=== PATIENT | male | born 1990 | race Caucasian/White ===

== ENCOUNTER 2024-09-23 19:41 | Emergency (ER) | payer MEDICAID, SELFPAY ==
[2024-09-23] VITALS (10 sets, daily range): BP systolic 147–162; BP diastolic 90–99; PULSE 79–102; RESP 12–28; TEMP 36.7; O2SAT 84–100; BMI 22.1
--- NOTE | 2024-09-23 19:50 | ECG_ITS ---
[facility] 2024-[facility]23 Pat Name: Ollie Bennett Department: Room: Gender: Male Assistant Construction Superintendent: : 1990 Requested By: Lewis Diaz Order Number: [id number] Reading MD: PEBBLES MURILLO Measurements Intervals Hamilton Rate: 97 P: 64 CO: 137 QRS: 26 QRSD: 84 T: 53 QT: 328 QTc: 418 Interpretive Statements SINUS RHYTHM No previous ECG available for comparison Electronically Signed On 09-24-2024 18:08:11 CDT by PEBBLES MURILLO [email or web address]
--- NOTE | 2024-09-23 21:10 | XRR_ITS ---
PROCEDURE INFORMATION: Exam: XR Chest Exam date and time: 09/23/2024 9:22 PM Age: 34 years old Clinical indication: Chest pressure and chest wall pain; Additional info: Cp TECHNIQUE: Imaging protocol: Radiologic exam of the chest. Views: 1 view. COMPARISON: No relevant prior studies available. FINDINGS: Lungs: No consolidation. Pleural spaces: No pleural effusion. No pneumothorax. Heart/Mediastinum: No cardiomegaly. Bones/joints: No acute fracture. XR/XR chest 1V portable [id number] IMPRESSION: No acute cardiopulmonary findings.
--- NOTE | 2024-09-23 21:11 | ED_ITS ---
HPI - Chest Pain 2 General: Chief Complaint: Chest Pain Stated Complaint: chest pressure, high HR Time Seen by Provider: 09/23/24 20:57 History of Present Illness: Patient presents with acute onset of chest pain and tachycardia that began around noon today. Symptoms started after an episode of vomiting, accompanied by severe chest pain. Patient reports multiple episodes of emesis today. Associated symptoms include weakness and near-syncope, stating they 'could barely stand up.' Patient called EMS at approximately 12:15, who performed an EKG and noted initially elevated blood pressure which subsequently decreased. Patient initially refused transport but later presented to ED due to recurring chest tightness and tachycardia. Pertinent past medical history includes Type 1 Diabetes Mellitus with recent A1c of 8.8% (improved from previous readings, last checked May 2024) and a previous myocardial infarction at age 27, which was attributed to poor diabetic control. No interventions were performed for the previous CA. Current diabetes management is reported as 'a lot better' than when younger. Blood glucose was 192 when checked by building trades instructor today. Related Data Allergies Allergy/AdvReac Type Severity Reaction Status Date / Time Penicillins Allergy ALGY-Anaphy Verified 09/23/24 19:49 laxis Physical Exam 2 Const: COMMON NORMALS: no acute distress, patient oriented x3, alert and well nourished HENMT: COMMON NORMALS: normocephalic HEAD & SCALP: normocephalic Eye: COMMON NORMALS: Equal, round and reactive pupils present, EOMs intact bilaterally and conjunctivae normal CONJUNCTIVA: Yes conjunctivae normal P UPIL: Yes Equal, round and reactive pupils present Neck/C-Spine: COMMON NORMALS: full ROM, no lymphadenopathy, supple, no meningeal signs, no JVD and Thyroid normal THYROID: Thyroid normal Chest: COMMONS NORMALS: normal inspection of the chest and normal palpation of entire chest wall Resp: COMMON NORMALS: normal respiratory effort, No retractions, No use of accessory muscles, clear to auscultation bilaterally and percussion normal A USCULTATION: clear to auscultation bilaterally PERCUSSION: percussion normal Cardio: COMMON NORMALS: no JVD GI: COMMON NORMALS: Normal to inspection, nondistended, normoactive bowel sounds present, Soft to palpation, non-tender, No hepatosplenomegaly present, no masses and no bruits PALPATION: Yes Soft to palpation and Yes No hepatosplenomegaly present : COMMON NORMALS: Yes no CVA tenderness BLADDER/KIDNEY EXAM: Yes no CVA tenderness Back/Pelvis: COMMON NORMALS: no CVA tenderness Extremity: COMMON NORMALS: normal to inspection, full ROM, capillary refill normal, no joint enlargement, no clubbing, cyanosis or edema, no calf tenderness and no pedal edema Neuro: COMMON NORMALS: patient oriented x3 SENSORIUM/ORIENTATION: Yes alert MENINGEAL SIGNS: Yes no meningeal signs Skin: COMMON NORMALS: no rashes or lesions noted, turgor normal and no jaundice GENERAL SKIN EXAM: no rashes or lesions noted and turgor normal Course 2 Vital Signs: Vital signs: Vital Signs Temperature 98.0 F 09/23/24 19:44 Pulse Rate 81 09/23/24 22:20 Respiratory Rate 22 H 09/23/24 22:20 Blood Pressure 162/91 09/23/24 22:20 Pulse Oximetry 98 09/23/24 22:20 Oxygen Delivery Me thod Room Air 09/23/24 21:14 MDM - Chest Pain Medical Decision Making 1. Acute Chest Pain with Tachycardia: - Concerning presentation given history of previous CA and Type 1 Diabetes - Will obtain and review EKG from current visit - Ordering chest X-ray - Cardiac workup indicated including troponins 2. Type 1 Diabetes Mellitus: - Suboptimal control with A1c 8.8% - Will check current blood glucose and basic metabolic panel - Consider diabetic ketoacidosis in differential given vomiting 3. Nausea/Vomiting: - New onset, requires investigation in context of chest pain - Will monitor symptoms and provide antiemetics as needed Plan: - Continuous cardiac monitoring - Laboratory studies including cardiac enzymes, CBC, CMP - Review EMS EKG and obtain current EKG - Chest X-ray - Reassess after results available Lab Data 09/23/24 21:24 09/23/24 21:24 Laboratory Results WBC 9.72 10^3/uL (3.29-11.43) 09/23/24 21:24 RBC 3.25 10^6/uL (3.85-5.65) L 09/23/24 21:24 Hgb 10.00 g/dL (11.27-16.99) L 09/23/24 21:24 Hct 29.2 % (37-53) L 09/23/24 21:24 MCV 89.8 fl (82-101) 09/23/24 21: MCH 30.8 pg (27-33) 09/23/24 21:24 MCHC 34.2 g/dL (30-55) 09/23/24 21: RDW 11.9 % (12.1-15.1) L 09/23/24 21:24 Plt Count 286 10^3/cmm (157-399) 09/23/24 21:24 MPV 9.4 fL (7.4-10.4) 09/23/24 21:24 Neut % (Auto) 64.3 % 09/23/24 21: Lymph % (Auto) 25.7 % 09/23/24: Cameron % (Auto) 6.6 % 09/23/24: Eos % (Auto) 3.0 % 09/23/24 21: Baso % (Auto) 0.1 % 09/23/24: Neut # (Auto) 6.25 10^3/uL (1.8-7.7) 09/23/24: Lymph # (Auto) 2.5 10^3/uL (0.8-4.8) 09/23/24 21:24 Cameron # (Auto) 0.6 10^3/uL (0.2-0.9) 09/23/24: Eos # (Auto) 0.3 10^3/uL (0.0-0.8) 09/23/24: Baso # (Auto) 0.0 10^3/uL (0.0-0.1) 09/23/24: Nucleated RBC % (auto) 0 % 09/23/24: Nucleated RBCs # 0.0 /100WBC 09/23/24 21:24 Sodium 135 mmol/L (136-145) L 09/23/24 21:24 Potassium 4.3 mmol/L (3.5-5.1) 09/23/24 21: Chloride 101 mmol/L (98-107) 09/23/24 21:24 Carbon Dioxide 23 mmol/L (22-29) 09/23/24 21:24 Anion Gap 15.3 (5-19) 09/23/24 21:24 BUN 33 mg/dL (6-20) H 03/16/25 21:24 Creatinine 2.2 mg/dL (0.7-1.2) H 09/23/24 21:24 GFR Calculation 34.2 mL/min (90-130) L 09/23/24 21:24 Glucose 352 mg/dL (65-115) H 09/23/24 21:24 Calculated Osmolality 301 mOsm/kg (285-295) H 09/23/24 21:24 Calcium 8.9 mg/dL (8.5-10.5) 09/23/24 21:24 Total Bilirubin 0.2 mg/dL (0.15-1.2) 09/23/24 21:24 AST 20 U/L (0-40) 09/23/24 21:24 ALT 15 U/L (0-41) 09/23/24 21:24 Alkaline Phosphatase 83 U/L (40-130) 09/23/24 21:24 Troponin T Baseline 19 ng/L (0-15) H 09/23/24 21:24 Total Protein 6.5 g/dL (6.6-8.7) L 09/23/24 21:24 Albumin 3.6 g/dL (3.5-5.2) 09/23/24 21:24 Globulin 2.9 g/dL (1.3-4.6) 09/23/24 21:24 XR interpretation done by ED provider, pending radiology final review Discharge Plan Discharge Condition: Stable Referrals: Lashae Rolon APN [Primary Care Provider] - Print Language: Maori Coding Level of Care Code ED Human Service Coordinator for Fátima Sue
[2024-09-23 21:29] LABS: Basophils % 0.1 %; Eosinophils # 0.3 10^3/uL (0.0-0.8); Hematocrit 29.2 % (37-53); Lymphocytes # 2.5 10^3/uL (0.8-4.8); Lymphocytes % 25.7 %; Mean Corpuscular HGB Conc 34.2 g/dL (30-55); Mean Corpuscular Hemoglobin 30.8 pg (27-33); Mean Corpuscular Volume 89.8 fl (82-101); Mean Platelet Volume 9.4 fL (7.4-10.4); Monocytes # 0.6 10^3/uL (0.2-0.9); Monocytes % 6.6 %; Neutrophils # 6.25 10^3/uL (1.8-7.7); Neutrophils % 64.3 %; Nucleated Red Blood Cells % 0 %; Platelet Count 286 10^3/cmm (157-399); Red Blood Count 3.25 10^6/uL (3.85-5.65); Red Cell Distribution Width 11.9 % (12.1-15.1); White Blood Count 9.72 10^3/uL (3.29-11.43)
[2024-09-23 21:46] LABS: Troponin(5th) Baseline 19 ng/L (0-15)
[2024-09-23 22:09] LABS: Alanine Aminotransferase 15 U/L (0-41); Albumin Level 3.6 g/dL (3.5-5.2); Alkaline Phosphatase 83 U/L (40-130); Anion Gap 15.3 (5-19); Aspartate Amino Transferase 20 U/L (0-40); Blood Urea Nitrogen 33 mg/dL (6-20); Calcium 8.9 mg/dL (8.5-10.5); Carbon Dioxide 23 mmol/L (22-29); Chloride 101 mmol/L (98-107); Globulin 2.9 g/dL (1.3-4.6); Glomerular Filtration Rate 34.2 mL/min (90-130); Glucose 352 mg/dL (65-115); Osmolality Calculated 301 mOsm/kg (285-295); Potassium 4.3 mmol/L (3.5-5.1); Sodium 135 mmol/L (136-145); Total Bilirubin 0.2 mg/dL (0.15-1.2); Total Protein 6.5 g/dL (6.6-8.7)
--- NOTE | 2024-09-23 22:33 | ED_ITS ---
HPI - Chest Pain 2 General: Chief Complaint: Chest Pain Stated Complaint: chest pressure, high HR Time Seen by Provider: 09/23/24 20:57 History of Present Illness: Patient presents with acute onset of chest pain and tachycardia that began around noon today. Symptoms started after an episode of vomiting, accompanied by severe chest pain. Patient reports multiple episodes of emesis today. Associated symptoms include weakness and near-syncope, stating they 'could barely stand up.' Patient called EMS at approximately 12:15, who performed an EKG and noted initially elevated blood pressure which subsequently decreased. Patient initially refused transport but later presented to ED due to recurring chest tightness and tachycardia. Pertinent past medical history includes Type 1 Diabetes Mellitus with recent A1c of 8.8% (improved from previous readings, last checked May 2024) and a previous myocardial infarction at age 27, which was attributed to poor diabetic control. No interventions were performed for the previous [facility]. Current diabetes management is reported as 'a lot better' than when younger. Blood glucose was 192 when checked by marketing traffic coordinator today. Related Data Allergies Allergy/AdvReac Type Severity Reaction Status Date / Time Penicillins Allergy ALGY-Anaphy Verified 09/23/24 19:49 laxis Physical Exam 2 Const: COMMON NORMALS: no acute distress, patient oriented x3, alert and well nourished HENMT: COMMON NORMALS: normocephalic HEAD & SCALP: normocephalic Eye: COMMON NORMALS: Equal, round and reactive pupils present, EOMs intact bilaterally and conjunctivae normal CONJUNCTIVA: Yes conjunctivae normal P UPIL: Yes Equal, round and reactive pupils present Neck/C-Spine: COMMON NORMALS: full ROM, no lymphadenopathy, supple, no meningeal signs, no JVD and Thyroid normal THYROID: Thyroid normal Chest: COMMONS NORMALS: normal inspection of the chest and normal palpation of entire chest wall Resp: COMMON NORMALS: normal respiratory effort, No retractions, No use of accessory muscles, clear to auscultation bilaterally and percussion normal A USCULTATION: clear to auscultation bilaterally PERCUSSION: percussion normal Cardio: COMMON NORMALS: no JVD GI: COMMON NORMALS: Normal to inspection, nondistended, normoactive bowel sounds present, Soft to palpation, non-tender, No hepatosplenomegaly present, no masses and no bruits PALPATION: Yes Soft to palpation and Yes No hepatosplenomegaly present : COMMON NORMALS: Yes no CVA tenderness BLADDER/KIDNEY EXAM: Yes no CVA tenderness Back/Pelvis: COMMON NORMALS: no CVA tenderness Extremity: COMMON NORMALS: normal to inspection, full ROM, capillary refill normal, no joint enlargement, no clubbing, cyanosis or edema, no calf tenderness and no pedal edema Neuro: COMMON NORMALS: patient oriented x3 SENSORIUM/ORIENTATION: Yes alert MENINGEAL SIGNS: Yes no meningeal signs Skin: COMMON NORMALS: no rashes or lesions noted, turgor normal and no jaundice GENERAL SKIN EXAM: no rashes or lesions noted and turgor normal Course 2 Vital Signs: Vital signs: Vital Signs Temperature 98.0 F 09/23/24 19:44 Pulse Rate 81 09/23/24 22:20 Respiratory Rate 22 H 09/23/24 22:20 Blood Pressure 162/91 09/23/24 22:20 Pulse Oximetry 98 09/23/24 22:20 Oxygen Delivery Me thod Room Air 09/23/24 21:14 MDM - Chest Pain Medical Decision Making 1. Acute Chest Pain with Tachycardia: - Concerning presentation given history of previous VA and Type 1 Diabetes - Will obtain and review EKG from current visit - Ordering chest X-ray - Cardiac workup indicated including troponins 2. Type 1 Diabetes Mellitus: - Suboptimal control with A1c 8.8% - Will check current blood glucose and basic metabolic panel - Consider diabetic ketoacidosis in differential given vomiting 3. Nausea/Vomiting: - New onset, requires investigation in context of chest pain - Will monitor symptoms and provide antiemetics as needed Plan: - Continuous cardiac monitoring - Laboratory studies including cardiac enzymes, CBC, CMP - Review EMS EKG and obtain current EKG - Chest X-ray - Reassess after results available X-ray was reviewed preliminarily no acute findings. Specifically no free air under the diaphragm or mediastinal shift. No pneumothorax. EKG revealed a normal sinus rhythm his initial lab work was normal or nondiagnostic he did have some abnormalities including some anemia and markedly elevated blood sugar that could be playing a role in his symptoms. We talked about disposition and the importance of follow-up he is agreeable to being discharged home with follow-up. Lab Data 09/23/24 21:24 09/23/24 21:24 Laboratory Results WBC 9.72 10^3/uL (3.29-11.43) 09/23/24: RBC 3.25 10^6/uL (3.85-5.65) L 09/23/24 21: Hgb 10.00 g/dL (11.27-16.99) L 09/23/24 21: Hct 29.2 % (37-53) L 09/23/24: MCV 89.8 fl (82-101) 09/23/24: MCH 30.8 pg (27-33) 09/23/24: MCHC 34.2 g/dL (30-55) 09/23/24: RDW 11.9 % (12.1-15.1) L 09/23/24: Plt Count 286 10^3/cmm (157-399) 09/23/24: MPV 9.4 fL (7.4-10.4) 09/23/24: Neut % (Auto) 64.3 % 09/23/24: Lymph % (Auto) 25.7 % 09/23/24: Knott % (Auto) 6.6 % 09/23/24: Eos % (Auto) 3.0 % 09/23/24: Baso % (Auto) 0.1 % 09/23/24: Neut # (Auto) 6.25 10^3/uL (1.8-7.7) 09/23/24: Lymph # (Auto) 2.5 10^3/uL (0.8-4.8) 09/23/24: Knott # (Auto) 0.6 10^3/uL (0.2-0.9) 09/23/24: Eos # (Auto) 0.3 10^3/uL (0.0-0.8) 09/23/24: Baso # (Auto) 0.0 10^3/uL (0.0-0.1) 09/23/24: Nucleated RBC % (auto) 0 % 09/23/24: Nucleated RBCs # 0.0 /100WBC 09/23/24: Sodium 135 mmol/L (136-145) L 03/16/25 21:24 Potassium 4.3 mmol/L (3.5-5.1) 09/23/24 21:24 Chloride 101 mmol/L (98-107) 09/23/24 21:24 Carbon Dioxide 23 mmol/L (22-29) 09/23/24 21:24 Anion Gap 15.3 (5-19) 09/23/24 21:24 BUN 33 mg/dL (6-20) H 09/23/24 21:24 Creatinine 2.2 mg/dL (0.7-1.2) H 09/23/24 21:24 GFR Calculation 34.2 mL/min (90-130) L 09/23/24 21:24 Glucose 352 mg/dL (65-115) H 09/23/24 21:24 Calculated Osmolality 301 mOsm/kg (285-295) H 09/23/24 21:24 Calcium 8.9 mg/dL (8.5-10.5) 09/23/24 21:24 Total Bilirubin 0.2 mg/dL (0.15-1.2) 09/23/24 21:24 AST 20 U/L (0-40) 09/23/24 21:24 ALT 15 U/L (0-41) 09/23/24 21:24 Alkaline Phosphatase 83 U/L (40-130) 09/23/24 21:24 Troponin T Baseline 19 ng/L (0-15) H 09/23/24 21:24 Total Protein 6.5 g/dL (6.6-8.7) L 09/23/24 21:24 Albumin 3.6 g/dL (3.5-5.2) 09/23/24 21:24 Globulin 2.9 g/dL (1.3-4.6) 09/23/24 21:24 XR interpretation done by ED provider, pending radiology final review Discharge Plan Discharge Patient Disposition: Home Clinical Impression: Atypical chest pain Condition: Stable Discharge Orders: Discharge ED (Routine); Ordered 09/23/24 Ordered By: Lewis Diaz Referrals: Lashae Rolon APN [Primary Care Provider] - Discharge Diet: Diabetic Discharge Activity: Increase activity as tolerated Patient Instructions: Opioid Safety, Pain Management Activity Restrictions/Additional Instructions: 1. Call PCP for follow-up tomorrow. Return for new or worsening symptoms. Print Language: Amharic Coding Level of Care Code ED Pit Recorder for Fátima Sue
== END 2024-09-23 22:55 | disposition home or self-care (01) ==
PROVIDERS: Emergency Provider Family Medicine; PCP Nurse Practitioner Family
DX: R07.89 Other chest pain (principal)
CPT/HCPCS: 36415; 71045; 80053; 84484; 85025; 93005; 99285

== ENCOUNTER 2024-11-26 20:35 | Emergency (ER) | payer BC, SELFPAY ==
[2024-11-26 20:44] VITALS: BP 135/80; PULSE 114; TEMP 37.7; O2SAT 98; BMI 21.4
[2024-11-26 20:55] VITALS: PULSE 108; O2SAT 99
[2024-11-26] MEDS: lidocaine 1% 10 ML INJ SUBCUT (21:01)
--- NOTE | 2024-11-26 21:11 | W.ED.SKABFB ---
HPI - Skin/Abscess/Foreign Bdy General: Chief complaint: Skin/Abscess/Foreign Body Stated complaint: pain on bottom Time Seen by Provider: 11/26/24 20:51 Source: patient Mode of arrival: ambulatory Limitations: no limitations History of Present Illness: 34-year-old male states that he has had an abscess to his left buttocks and it was for the last few days he said some slight drainage from it it is enlarged and causing pain he denies any fevers at home denies any vomitings had multiple abscesses in the past. Denies any Associated symptoms: Reports fever(s); Deny chills, nausea or vomiting Related Data Previous Rx's ?Medication ?Instructions ?Recorded clindamycin HCl 300 mg capsule 300 mg PO Q8H 7 days #21 caps 11/26/24 (Cleocin HCl) naproxen 500 mg tablet (Naprosyn) 500 mg PO BID PRN pain #20 tabs 11/26/24 Allergies Allergy/AdvReac Type Severity Reaction Status Date / Time Penicillins Allergy ALGY-Anaphy Verified 11/26/24 20:50 laxis Review of Systems Const: Reports: fever(s); Denies: chills, body aches or change in appetite ENMT: Denies: throat pain or dental pain Card: Denies: chest pain Resp: Denies: dyspnea GI: Denies: abdominal pain, nausea, vomiting or diarrhea Musc: Denies: neck pain or back pain Skin/Breast: Reports: erythema; Denies: rash Neuro: Denies: headache(s) Physical Exam Const: COMMON NORMALS: no acute distress, patient oriented x3 and healthy appearing HENMT: COMMON NORMALS: normocephalic and atraumatic HEAD & SCALP: normocephalic and atraumatic Eye: COMMON NORMALS: conjunctivae normal CONJUNCTIVA: Yes conjunctivae normal Neck/C-Spine: COMMON NORMALS: full ROM and supple Chest: COMMONS NORMALS: normal inspection of the chest Resp: COMMON NORMALS: normal respiratory effort Cardio: COMMON NORMALS: regular rate RATE: regular rate GI: OTHER: Abscess noted to left inner butt cheek no testicle or perineal involvement Extremity: COMMON NORMALS: normal to inspection and full ROM Neuro: COMMON NORMALS: patient oriented x3, moves all extremities and no focal motor deficits Psych: COMMON NORMALS: mental status grossly normal, Normal thought process present and cooperative THOUGHT PROCESS: Normal thought process present Skin: COMMON NORMALS: no rashes or lesions noted and no wounds GENERAL SKIN EXAM: no rashes or lesions noted Procedures Abscess I/D Site: martin-rectal Side (if applicable): left Local Anesthetic: lidocaine 1% Amount of anesthesia used (mL): 10 Technique: incised with #11 blade Packing used?: iodoform Course Vital Signs: Vital signs: Vital Signs Temperature 99.8 F H 11/26/24 20:44 Pulse Rate 108 H 11/26/24 20:55 Blood Pressure 135/80 11/26/24 20:44 Pulse Oximetry 99 11/26/24 20:55 Oxygen Delivery Me thod Room Air 11/26/24 20:44 MDM - Skin/Abscess/Foreign Bdy Medicial Decision Making Patient presents for an abscess to his left inner buttocks did ultrasound was found a pocket did incise and drain with a large amount of purulent fluid did place packing he is to come back in 2 days to have packing removed and wound check he has no signs of Martina's gangrene he is return if he has high fevers or worsening pain he understands agrees to plan No radiology studies performed this visit Discharge Plan Discharge Patient Disposition: Home Clinical Impression: Abscess Condition: Stable Prescriptions: New naproxen [Naprosyn] 500 mg tablet 500 mg PO BID PRN (Reason: pain) Qty: 20 0RF clindamycin HCl [Cleocin HCl] 300 mg capsule 300 mg PO Q8H 7 Days Qty: 21 0RF Discharge Orders: Discharge ED (Routine); Ordered 11/26/24 Ordered By: Aide Rivera Referrals: Lashae Rolon APN [Primary Care Provider, [facility]] Discharge Diet: Advance as tolerated Discharge Activity: Resume usual activity Patient Instructions: Abscess (ED) Print Language: Ecuadorean Coding Level of Care Code ED Geographic Information Systems Analyst for Fátima Sue
[2024-11-26] MEDS: HYDROcodone-acetaminophen 5-325 mg Tablet 1 TAB PO (21:16)
[2024-11-26] MEDS: clindamycin 150 mg Capsule 300 MG PO (21:16)
[2024-11-26 21:52] VITALS: BP 180/103; PULSE 89; RESP 16; O2SAT 100
== END 2024-11-26 21:53 | disposition home or self-care (01) ==
PROVIDERS: Emergency Provider Emergency Medicine; PCP Nurse Practitioner Family
DX: L02.31 Cutaneous abscess of buttock (principal)
CPT/HCPCS: 10060; 99283; J9999

== ENCOUNTER 2025-04-30 18:22 | Emergency (ER) | payer BC, SELFPAY ==
--- OUTSIDE RECORDS SUMMARY | 2024-07-02 06:00 | XMS_ITS ---
Author Organization [facility] Address [address] [facility] [place] [address] Care Team Providers Care Public Health Professor Name Role Phone Joshua Rolon Primary Care Provider [phone] JOSHUA ROLON Unavailable Unavailable Marguerite Lancaster Unavailable [phone] REASON FOR VISIT CKD Stage 3a Medications Medication SIG (Take, Route, Frequency, Duration) Notes Start Date End Date Status Carvedilol 25 MG Tablet 1 tablet with fo od Orally Twice a day Active cloNIDine HCl 0.1 MG Tablet 1 tablet Orally Twice a day Active Chlorthalidone 25 MG Tablet 1 tablet in the morning with food Orally Not-Taking Doxazosin Mesylate 8 MG Tablet 1 tablet Orally twice a day Active HumaLOG KwikPen 100 UNIT/ML Solution Pen-injector sliding scale Subcutaneous Active Atorvastatin Calcium 40 MG Tablet 1 tablet Orally Once a day Active Toujeo SoloStar 300 UNIT/ML Solution Pen-injector 40 units at bedtime Subcutaneous Active Spironolactone 25 MG Tablet 1 tablet Orally Not-Taking Methocarbamol 500 MG Tablet 2 tabs Orally four times a day as needed Active Losartan Potassium 100 MG Tablet 1 tablet Orally Once a day Active Encounters Encounter Location Date Provider Diagnosis [facility] [address] [place] [address] Dr Jacobsen [address] [place] [address] 07/02/2024 Marguerite Lancaster Plan Of Treatment No Information History and Physical Notes * HPI (History of Present Illness) Category Sub-Category Detail Notes Category Not es : The following is from my interview with the patient and review of provided records, which may include inpatient [facility] records. Mr. Bennett is a 34-year-old male patient presenting for evaluation of stage IIIa CKD. He was referred by Joshua Rolon APRN. He has a past medical history of type 1 diabetes, TBI . He was hospitalized from 05/20/2024 to [facility] diagnosis of BLU dehydration and hyperglycemia. It was suspected his BLU was secondary to hyperglycemia and dehydration. His creatinine on presentation was 2.2. Upon discharge his creatinine was 1.86. His most recent creatinine was 2.07 on 05/28/2024. There is limited data available for review as patient recently relocated to the area from [place]. He was diagnosed with type 1 diabetes at the age of . His HgbA1c was 10.4% on 05/28/2024. He is currently taking a sliding scale Humalog and Toujeo 40 units at bedtime. He was diagnosed with hypertension at the age of . Currently takes clonidine 0.1 mg twice daily, doxazosin 8 mg twice daily, losartan 100 mg twice daily and carvedilol 25 mg twice daily. Comorbidities: Type 1 diabetes, hypertension, TBI Associated factors: Aggravating factors: Labratory data: 05/28/2024:145, 4.9, 114, 25.5, 49, 2.07, glucose 122, calcium 9.9, albumin 3.9, A1c 10.4% 05/21/2024:147, 4.1, 116, 23.8, 34, 1.86, glucose 192, calcium 9.7, phosphorus 2.8, magnesium 1.8, hemoglobin 9.4 05/20/2024:138, 4.7, 107, 25.8, 41, 1.98, glucose 307, calcium 10.1, albumin 4.1, hemoglobin 9.6 Progress Notes * Ollie BENNETTDOB:1989 (34 yo M)Acc No.[id number]:07/02/2024 Progress Notes Patient: Ollie Epperson Provider: Kristy Lancaster CNP :1990 A ge:34 Y S ex:Male Date:07/02/2024 Address:[address] [place] [address], [id number] Pcp:Joshua Rolon Subjective: * Chief Complaints: * C KD Stage 3a * HPI: * :: The following is from my interview with the patient and review of provided records, which may include inpatient [facility] records. Kristy Bennett is a 34-year-old male patient presenting for evaluation of stage IIIa CKD. He was referred by Joshua Rolon APRN. He has a past medical history of type 1 diabetes, TBI . He was hospitalized from 05/20/2024 to 05/21/2024 [facility] for diagnosis of BLU dehydration and hyperglycemia. It was suspected his BLU was secondary to hyperglycemia and dehydration. His creatinine on presentation was 2.2. Upon discharge his creatinine was 1.86. His most recent creatinine was 2.07 on 05/28/2024. There is limited data available for review as patient recently relocated to the area from [place]. David mejia was diagnosed with type 1 diabetes at the age of . His HgbA1c was 10.4% on 05/28/2024. He is currently taking a sliding scale Humalog and Toujeo 40 units at bedtime. David mejia was diagnosed with hypertension at the age of . Currently takes clonidine 0.1 mg twice daily, doxazosin 8 mg twice daily, losartan 100 mg twice daily and carvedilol 25 mg twice daily. Comorbidities: Type 1 diabetes, hypertension, TBI Associated factors: Aggravating factors: Labratory data: 05/28/2024:145, 4.9, 114, 25.5, 49, 2.07, glucose 122, calcium 9.9, albumin 3.9, A1c 10.4% 05/21/2024:147, 4.1, 116, 23.8, 34, 1.86, glucose 192, calcium 9.7, phosphorus 2.8, magnesium 1.8, hemoglobin 9.4 05/20/2024:138, 4.7, 107, 25.8, 41, 1.98, glucose 307, calcium 10.1, albumin 4.1, hemoglobin 9.6. * Hospitalization/Major Diagno stic Procedure: hypoglycemia 05/20/2024 * Medications: T akingAtorvastatin Calcium 40 MG Tablet 1 tablet Orally Once a day Carvedilol 25 MG Tablet 1 tablet with food Orally Twice a day cloNIDine HCl 0.1 MG Tablet 1 tablet Orally Twice a day Doxazosin Mesylate 8 MG Tablet 1 tablet Orally twice a day HumaLOG KwikPen 100 UNIT/ML Solution Pen-injector sliding scale Subcutaneous Losartan Potassium 100 MG Tablet 1 tablet Orally Once a day Methocarbamol 500 MG Tablet 2 tabs Orally four times a day as needed Toujeo SoloStar 300 UNIT/ML Solution Pen- injector 40 units at bedtime Subcutaneous Taking Atorvastatin Calcium 40 MG Tablet 1 tablet Orally Once a day Taking Carvedilol 25 MG Tablet 1 tablet with food Orally Twice a day Taking cloNIDine HCl 0.1 MG Tablet 1 tablet Orally Twice a day Taking Doxazosin Mesylate 8 MG Tablet 1 tablet Orally twice a day Taking HumaLOG KwikPen 100 UNIT/ML Solution Pen-injector sliding scale Subcutaneous Taking Losartan Potassium 100 MG Tablet 1 tablet Orally Once a day Taking Methocarbamol 500 MG Tablet 2 tabs Orally four times a day as needed Taking Toujeo SoloStar 300 UNIT/ML Solution Pen- injector 40 units at bedtime Subcutaneous Not-TakingChlorthalidone 25 MG Tablet 1 tablet in the morning with food Orally Spironolactone 25 MG Tablet 1 tablet Orally Not- Taking Chlorthalidone 25 MG Tablet 1 tablet in the morning with food Orally Not-Taking Spironolactone 25 MG Tablet 1 tablet Orally * Electronic signature of Poonam Lancaster CNP on 04/30/2025 at 06:57 PM CDT Sign off status: Pending * Provider: Kristy Lancaster CNP Date: 09/02/2023 Generated for Lion davis/Kassie/Kemar on: 06:57 PM CDT
--- OUTSIDE RECORDS SUMMARY | 2024-08-28 02:40 | XMS_ITS ---
Author Organization [facility] Address [address] [place] [address] Care Team Providers Care Inter Fold Roll Cutter Name Role Phone Lashae Rolon Primary Care Provider LASHAE ROLON Unavailable Unavailable REASON FOR VISIT 3 month f/u Encounters Encounter Location Date Provider Diagnosis [facility] [address] [address] 08/28/2024 Lashae Rolon Plan Of Treatment No Information Progress Notes * Ollie BENNETTDOB:1989 (34 yo M)Acc No.[id number]:08/28/2024 Progress Notes Patient: Ani avendañomedardoOllie Provider: Mateus Rolon APRN :1990 A ge:34 Y S ex:Male Date:08/28/2024 Address:[address] [place], [place] [address] Subjective: * Chief Complaints: * 3 month f/u Care Plan Details* * Electronic signature of Eduin Rolon APN on 04/30/2025 at 06:55 PM CDT Sign off status: Pending * Provider: Mateus Rolon APRN Date: 0 08/28/2024 Generated for Pami ng/Kassie/eTransmitting on: 1 06:55 PM CDT
--- OUTSIDE RECORDS SUMMARY | 2024-10-13 04:00 | XMS_ITS ---
Author Organization [facility] Address [address] [place], [place] [id number] Care Team Providers Care Consulting It Architect Name Role Phone Migration, Provider Unavailable Unavailable REASON FOR VISIT EMR-Yury Encounters Encounter Location Date Provider Diagnosis [facility] [address] [place], [place] [id number] 10/13/2024 Provider Migration Plan Of Treatment No Information Progress Notes * Ollie BENNETT LDOB:10/1989 (34 yo M)Acc No.[id number]:10/13/2024 Patient: Ollie BELCHER :1990 A ge:34 Y S ex:Male Address:[facility] [place], [address] Subjective: * Chief Complaints: * E MR-Yury * * Date:
--- OUTSIDE RECORDS SUMMARY | 2024-10-14 04:00 | XMS_ITS ---
Author Organization [facility] Address [address] [place], [place] [id number] Care Team Providers Care It Applications Analyst Name Role Phone Migration, Provider Unavailable Unavailable REASON FOR VISIT EMR-Yury Encounters Encounter Location Date Provider Diagnosis [facility] [address] [place], [place] [id number] 10/14/2024 Provider Migration Plan Of Treatment No Information Progress Notes * Ollie BENNETT LDOB:10/1989 (34 yo M)Acc No.[id number]:10/14/2024 Patient: Ollie BELCHER :1990 A ge:34 Y S ex:Male Address:[facility] [place], [address] Subjective: * Chief Complaints: * E MR-Yury * * Date:
[2025-04-30 18:27] VITALS: BP 159/97; PULSE 97; TEMP 36.9; O2SAT 100; BMI 21.4
--- NOTE | 2025-04-30 18:42 | ED_ITS ---
HPI - Dental/Oral General: Chief complaint: Dental/Oral Stated complaint: Face swollen Time Seen by Provider: 04/30/25 18:24 History of Present Illness: 34-year-old man who [facility] with right lower jaw pain. He has a bad tooth. He has developed swelling in the anterior right jaw region. Related Data Previous Rx's ?Medication ?Instructions ?Recorded naproxen 500 mg tablet (Naprosyn) 500 mg PO BID PRN pa in #20 tabs 11/26/24 clindamycin HCl 300 mg capsule 600 mg (2 x 300 mg) PO Q8H 10 days 04/30/25 #60 caps dexamethasone 6 mg tablet 6 mg PO DAILY 5 days #5 tabs 04/30/25 diclofenac sodium 50 mg 50 mg PO BID PRN pain #14 ta bs 04/30/25 tablet,delayed release Allergies Allergy/AdvReac Type Severity Reaction Status Date / Time Penicillins Allergy ALGY-Anaphy Verified 04/30/25 18:30 laxis Review of Systems Narrative: Constitutional symptoms: Negative except as documented in HPI. Skin symptoms: Negative except as documented in HPI. Eye symptoms: Negative except as documented in HPI. ENMT symptoms: Negative except as documented in HPI. Respiratory symptoms: Negative except as documented in HPI. Cardiovascular symptoms: Negative except as documented in HPI. Gastrointestinal symptoms: Negative except as documented in HPI. Genitourinary symptoms: Negative except as documented in HPI. Musculoskeletal symptoms: Negative except as documented in HPI. Neurologic symptoms: Negative except as documented in HPI. Psychiatric symptoms: Negative except as documented in HPI. Endocrine symptoms: Negative except as documented in HPI. Physical Exam Narrative: EXAM NARRATIVE: General: Alert, no acute distress. Skin: warm and dry Head: Normocephalic Neck: Trachea midline Eye: Extraocular movements are intact. Ears, nose, mouth and throat: Poor dentition. Swelling consistent with a right lower frontal dental abscess. Respiratory: Respirations are non-labored Musculoskeletal: Normal ROM Gastrointestinal: Abdomen does not appear distended Neurological: Alert and oriented, No focal neurological deficit observed. Psychiatric: Cooperative, appropriate mood & affect. Course Vital Signs: Vital signs: Vital Signs Temperature 98.4 F 04/30/25 18:27 Pulse Rate 97 04/30/25 18:27 Blood Pressure 159/97 04/30/25 18:27 Pulse Oximetry 100 04/30/25 18:27 Oxygen Delivery Me thod Room Air 04/30/25 18:27 MDM - Dental/Oral Medical Decision Making Medical decision making: Differential diagnosis including but not limited to and based on the above HPI, review of systems and physical exam: Patient has a fairly obvious dental abscess. At this point he needs antibiotics and follow-up with a dentist. No indication for any imaging or lab work. Assessment and plan: Dental abscess ?IM clinda and IM Toradol - Discharged home - Discussed plan with patient. Answered any questions. - Evaluation and treatment of this problem were appropriate in the emergency setting. No radiology studies performed this visit Discharge Plan Discharge Patient Disposition: Home Clinical Impression: Dental abscess Condition: Stable Prescriptions: New clindamycin HCl 300 mg capsule 600 mg PO Q8H 10 Days Qty: 60 0RF dexamethasone 6 mg tablet 6 mg PO DAILY 5 Days Qty: 5 0RF diclofenac sodium 50 mg tablet,delayed release (DR/EC) 50 mg PO BID PRN (Reason: pain) Qty: 14 0RF No Action naproxen [Naprosyn] 500 mg tablet 500 mg PO BID PRN (Reason: pain) Qty: 20 0RF Discharge Orders: Discharge ED (Routine); Ordered 04/30/25 Ordered By: Tosha Austin Referrals: Lashae Rolon APN [Primary Care Provider, Family Practice] Discharge Diet: Advance as tolerated Discharge Activity: Increase activity as tolerated Patient Instructions: Dental Abscess (ED), Opioid Safety, Pain Management, Patient Portal & Sydni Instructions Activity Restrictions/Additional Instructions: Please follow-up with a dentist soon as possible Thank you for choosing [facility] for your healthcare needs today. You have been screened and evaluated and felt safe for discharge. Health conditions do change or evolve sometimes and as such it is important that you follow up with your Primary Doctor to be re checked, 3-5 days is a general good time frame for follow up. You are always welcome to return to the ED for re assessment if your symptoms are worsening or you have new concerns Print Language: Kittitian Coding Level of Care Code ED Day Habilitation Specialist for Fátima Sue
--- OUTSIDE RECORDS SUMMARY | 2025-04-30 18:57 | XMS_ITS | Patient Health Record ---
Author Organization [facility] Address [address] [place], [place] [id number] Care Team Providers Care Splitter Hand Name Role Phone Migration, Provider Unavailable Unavailable Reason For Referral No Information Encounters Encounter Location Date Provider Diagnosis [facility] [address] [place], [place] [id number] 10/13/2024 Provider Migration [facility] [address] [place], [place] [id number] 10/14/2024 Provider Migration Plan Of Treatment No Information
--- OUTSIDE RECORDS SUMMARY | 2025-04-30 18:57 | XMS_ITS | Patient Health Record ---
Author Organization [facility] Address [address] [place] [address] [place] [address] Care Team Providers Care [employer] Agent Team Member Name Role Phone Lashae Rolon Primary Care Provider LASHAE ROLON Unavailable Unavailable Aleyda Ross Unavailable [phone] Marguerite Lancaster Unavailable [phone] Allergies No Known Allergies Results Component Value Reference Range Flag Notes Comprehensive Metabolic Pane l (CMP) [id number] Reviewed date:10/25/2024 04:15:56 PM Interpretation: Performing Lab: Notes/Report: Diagnosis Description: Essential (primary) hypertension Glucose Serum 396 71-110 MG/DL HI Testing p erformed at [facility], [address] [place] [address] [place] [address]. CLIA ID#: [id number] BUN 52 7-21 MG/DL HI Creat 2.42 .57-1.17 MG/DL HI N-ktbevi-h-benzoquino ne imine (NAPQI) is a metabolite of acetaminophen, NAPQI concentrations of apparoximately 10 mg/L correlation to toxic levels of acetaminophen demonstrates a greater than or equil to 10% change in results. NAPQI concentrations greater than this may lead to falsely depressed results for patient samples. Use of this assay is not recommended for patients undergoing treatment with phenindione, due to the potential for falsely depressed results. GFR 34.8 NA Calculation pe rformed from GFR calculator provided by the [employer]. Glomerular Filtration rate(GRF) is the best overall index of kidney function. Normal GFR varies according to age,sex, body size, and declines with age. The National Kidney Foundation recommends using the CKD-EPI Creatinine Equation(2020) to estimate GFR. BUN/Creat Ratio 21.5 12.0-20.0 % HI Total Protein 6.8 5.8-8.0 G/DL Albumin 4.0 3.2-4.8 G/DL Globulin 2.8 2.3-3.5 G/DL Alb/Glob 1.4 0.8-2.2 Calcium 9.9 8.7-10.4 MG/DL Sodium 130 136-145 MMOL/L LOW Potassium 5.5 3.5-5.1 MMOL/L HI Chloride 97 98-107 MMOL/L LOW CO2 26.1 20.0-31.0 MMOL/L Anion Gap 12 5-15 Alk Phos 100 46-116 Bili Total .3 .3-1.2 MG/DL Use of this assay is not recommended for patients undergoing treatment with eltrombopag due to the potential for falsely elevated results. AST/SGOT 20 15-37 UNIT/L ALT/SGPT 20 12-78 UNIT/L Osmo Serum,Calculated 301 280-300 MOSM/KG HI CBC w\ Auto Diff 39507 Reviewed date:10/22/2024 02:08:14 PM Interpretation: Performing Lab: Notes/Report: Diagnosis Description: Essential (primary) hypertension WBC 9.2 4.5-11.0 X10'3 RBC 3.25 4.50-5.90 X10'6 LOW Hgb 9.7 13.5-17.5 G/DL LOW Hct 29.7 41.0-53.0 % LOW MCV 91.4 80.0-100.0 FL MCH 29.8 27.0-31.0 PG MCHC 32.7 31.0-37.0 G/DL Platelet 307 150-400 X10'3 RDW-SD 40.7 35.0-49.0 FL RDW-CV 12.0 12.2-15.6 % LOW MPV 10.0 9.2-12.0 FL Neutro Auto% 61.7 40.0-70.0 % Lymph Auto% 26.3 22.0-44.0 % [place] Auto% 9.1 3.0-7.0 % HI Eos Auto% 2.6 2.0-4.0 % Baso Auto% 0.0 0.0-1.0 % Imm Gran% .3 .0-.4 % Neutro Abs 5.67 .80-7.70 Absolute Neutrophil Count 5670 NA Lymph Abs 2.42 .10-4.10 [place] Abs .84 .20-1.00 Eos Abs .24 .00-.40 Baso Abs .00 .00-.20 Imm Gran Abs .03 .00-.10 NRBC# .00 .00-.20 NRBC% .00 .00-.20 /100 intact WBC's Lipid Panel Reflex DLDL 8006 1, 61020 Reviewed date:10/22/2024 02:08:00 PM Interpretation: Performing Lab: Notes/Report: Diagnosis Description: Essential (primary) hypertension Trig 96 NA Classification Guidelines:Triglycerid es Adults: >20yrs Desirable <150 Borderline High 150-199 High 200-499 Very high >=500 Children: Male 0-4 yr 22-99 5-9 yr 30-101 10-14 yr 32-125 15-19 yr 37-148 Children: Female 0-4 yr 34-112 5-9 yr 32-105 10-14 yr 37-131 15-19 yr 39-132 Chol 196 <=200 MG/DL HDL 44 30-72 MG/DL Reference Ranges:HDL Male: 5-9y 38-75 10-14y 37-74 15-19y 30-63 >=20y 40-59 Female: 5-9y 36-73 10-14y 37-70 15-19y 35-74 >=20y 40-59 CH/HDL 4.5 0.0-4.9 RATIO LDL 134 0-130 MG/DL HI LDL result is inaccurate , if Trig is >400 mg/dl. See DLDL result. Hemoglobin A1c 40663 Reviewed date:10/22/2024 02:07:39 PM Interpretation: Performing Lab: Notes/Report: Diagnosis Description: Type 1 diabetes mellitus with diabetic neuropathy, unspecified Hgb A1c 10.3 3.8-6.4 % HI Interpretation Of Hgb A1c: 4.5-6.2 % nondiabetics. >7.0 % diabetics. EAG 249 NA Estimated Aver age Glucose(EAG). Hemoglobin A1c 52061 Reviewed date:06/27/2024 03:13:13 PM Interpretation: Performing Lab: Notes/Report: Diagnosis Description: Type 1 diabetes mellitus with diabetic neuropathy, unspecified Hgb A1c 10.4 3.8-6.4 % HI Interpretation Of Hgb A1c: 4.5-6.2 % nondiabetics. >7.0 % diabetics. EAG 252 NA Estimated Aver age Glucose(EAG). Comprehensive Metabolic Pane l ([facility]) 7[address]70 Reviewed date:06/27/2024 03:13:26 PM Interpretation: Performing Lab: Notes/Report: Diagnosis Description: Acute kidney failure, unspecified Glucose Serum 122 71-110 MG/DL HI Testing p erformed at [facility], [address] [place] [address] [place] [address]. CLIA ID#: [id number] BUN 49 7-21 MG/DL HI Creat 2.07 .57-1.17 MG/DL HI M-gntrfy-l-benzoquino ne imine (NAPQI) is a metabolite of acetaminophen, NAPQI concentrations of apparoximately 10 mg/L correlation to toxic levels of acetaminophen demonstrates a greater than or equil to 10% change in results. NAPQI concentrations greater than this may lead to falsely depressed results for patient samples. Use of this assay is not recommended for patients undergoing treatment with phenindione, due to the potential for falsely depressed results. GFR 42.0 NA Calculation pe rformed from GFR calculator provided by the National [employer]. Glomerular Filtration rate(GRF) is the best overall index of kidney function. Normal GFR varies according to age,sex, body size, and declines with age. The National Kidney Foundation recommends using the CKD-EPI Creatinine Equation(2020) to estimate GFR. BUN/Creat Ratio 23.7 12.0-20.0 % HI Total Protein 6.6 5.8-8.0 G/DL Albumin 3.9 3.2-4.8 G/DL Globulin 2.7 2.3-3.5 G/DL Alb/Glob 1.4 0.8-2.2 Calcium 9.9 8.7-10.4 MG/DL Sodium 145 136-145 MMOL/L Potassium 4.9 3.5-5.1 MMOL/L Chloride 114 98-107 MMOL/L HI CO2 25.5 20.0-31.0 MMOL/L Anion Gap 10 5-15 Alk Phos 81 46-116 Bili Total .2 .3-1.2 MG/DL LOW Use of this assay is not recommended for patients undergoing treatment with eltrombopag due to the potential for falsely elevated results. AST/SGOT 18 15-37 UNIT/L ALT/SGPT 17 12-78 UNIT/L Osmo Serum,Calculated 314 280-300 MOSM/KG HI Culture Blood [id number] Reviewed date:05/28/2024 06:13:20 AM Interpretation: Performing Lab: Notes/Report: Culture Blood KELLIE Perrin Culture Blood t: Culture Blood Culture Blood Accessio [id number] Culture Blood n: Culture Blood Microbiology Culture Blood PROCEDURE: Culture Blood [] Culture Blood SOURCE: Blood BODY SITE: Culture Blood COLLECTED DATE/TIME: 05/20/2024 07:30 ANDROID PLATFORM DEVELOPER RECEIVED DATE/TIME: 05/21/2024 18:37 ANDROID PLATFORM DEVELOPER Culture Blood START DATE/TIME: 05/21/2024 18:37 ANDROID PLATFORM DEVELOPER FREE TEXT SOURCE: not spec Culture Blood FINAL REPORT Culture Blood Final Report [] Culture Blood Verified Date/Time: 05/26/2024 08:10 ANDROID PLATFORM DEVELOPER Culture Blood No growth at 5 days. Culture Blood [id number] Reviewed date:05/28/2024 06:13:20 AM Interpretation: Performing Lab: Notes/Report: Culture Blood KELLIE Perrin Culture Blood t: Culture Blood Culture Blood Accessio [id number] Culture Blood n: Culture Blood Microbiology Culture Blood PROCEDURE: Culture Blood [] Culture Blood SOURCE: Blood BODY SITE: Culture Blood COLLECTED DATE/TIME: 05/20/2024 07:20 ANDROID PLATFORM DEVELOPER RECEIVED DATE/TIME: 05/21/2024 18:37 ANDROID PLATFORM DEVELOPER Culture Blood START DATE/TIME: 05/21/2024 18:37 ANDROID PLATFORM DEVELOPER FREE TEXT SOURCE: not spec Culture Blood FINAL REPORT Culture Blood Final Report [] Culture Blood Verified Date/Time: 05/26/2024 08:10 ANDROID PLATFORM DEVELOPER Culture Blood No growth at [address] C-Spine w/o Contrast incl Recon-[id number] Reviewed date:05/23/2024 06:11:45 AM Interpretation: Performing Lab: Notes/Report: Radiology report is located at [facility] - [phone] FINAL REPORT Read Radiology report is located at [place] [phone] CT Facial Bones w/o Contrast -04023 Reviewed date:05/23/2024 06:11:45 AM Interpretation: Performing Lab: Notes/Report: Radiology report is located at [facility] - [phone] FINAL REPORT Read Radiology report is located at [place] [phone] CT Head w/o Contrast-[id number] Reviewed date:05/23/2024 06:11:45 AM Interpretation: Performing Lab: Notes/Report: Radiology report is located at [place] [phone] FINAL REPORT Read Radiology report is located at [place] [phone] Reason For Referral Reason Type 1 DM Diagnosis 1 Type 1 diabetes kendall itus with diabetic neuropathy (E10.40) Referral Organization [facility] Referring Provider First Name Lashae Referring Provider Last Name [facility] Referring Provider Speciality Nurse Elizabeth lynne Referred Provider Cory Méndez Referred Provider Specialty Endocrinolog y General Notes Luma Curran 05/28 04:15:34 PM >faxed Referral Priority Routine Reason CKD Diagnosis 1 Chronic kidney disea se, stage 3a (N18.31) Referral Organization [facility] Referring Provider First Name Lashae Referring Provider Last Name [facility] Referring Provider Speciality Nurse Elizabeth lynne Referred Organization [facility] Referred Provider Lobo Galindo Referred Address [address] [place] [address] [address],[place], [place],[address], Referred Provider Specialty Nephrology General Notes Luma Curran 09/05 01:35:02 PM >patient no showed his appt Referral Priority Routine Medications Medication SIG (Take, Route, Frequency, Duration) Notes Start Date End Date Status cloNIDine HCl 0.1 MG Tablet Take 1 tablet by mouth twice daily; Duration: 30 Active Carvedilol 25 MG Tablet Take 1 tablet by mouth twice daily with food; Duration: 30 Active Methocarbamol 500 MG Tablet 2 tabs Orally four times a day as needed; Duration: 30 days Active Gabapentin 400 MG Capsule 1 capsule Orally Four times a day; Duration: 30 days Active Toujeo SoloStar 300 UNIT/ML Solution Pen-injector INJECT 34 UNITS SUBCUTANEOUSLY AT BEDTIME; Duration: 31 Active QUEtiapine Fumarate 100 MG Tablet Take 1 tablet by mouth once daily; Duration: 30 Active Doxepin HCl 10 MG Capsule Take 1 capsule by mouth once daily at bedtime; Duration: 30 Active Losartan Potassium 100 MG Tablet Take 1 tablet by mouth once daily; Duration: 30 Active Atorvastatin Calcium 40 MG Tablet Take 1 tablet by mouth once daily; Duration: 30 Active Chlorthalidone 25 MG Tablet 1 tablet in the morning with food Orally Not-Taking Doxazosin Mesylate 8 MG Tablet Take 1 tablet by mouth twice daily; Duration: 30 Active Spironolactone 25 MG Tablet 1 tablet Orally Not-Taking HumaLOG KwikPen 100 UNIT/ML Solution Pen-injector sliding scale Subcutaneous; Duration: 30 days Active Social History Tobacco Use: Social History Observation Description Date Details (start date - stop date) Current Smoker NA - NA Social History Depression Screening Social Info Question Answer Notes PHQ-9 Little interest or pleasure in doing thin gs Not at all Feeling down, depressed, or hopeless Not at all Trouble falling or staying asleep, or sleeping t oo much Not at all Feeling tired or having little energy Not at all Poor appetite or overeating Not at all Feeling bad about yourself, or that you are a failure, or have let yourself or your family down Not at all Trouble concentrating on thi ngs, such as reading the newspaper or watching television Not at all Moving or speaking so slowly that other people could have noticed. Or the opposite ? being so fidgety or restless that you have been moving around a lot more than usual Not at all Thoughts that you would be b mila off , or of hurting yourself in some way Not at all Total Score 0 Drug/Alcohol: Social Info Question Answer Notes AUDIT-C (Standard) Did you have a drink containing alcohol in the past year? No Points 0 Interpretation Negative Tobacco Use: Social Info Question Answer Notes Tobacco Control (Standard) Tobacco use: Current smoker How many cigarettes a day do you smoke? 05-30 Section Notes: 05/28/2024 PHQ9 05/28/2024 PHQ9 Problems Problem Type SNOMED Code ICD Code Onset Dates Problem Status W/U Status Risk Notes Problem Hypertension (85308999) HTN (hypertension) (I10) Active confirmed Problem Diabetic autonomic neuropathy due to type 1 diabetes mellitus (157479481) Type 1 diabetes mellitus with diabetic neuropathy (E10.40) Active confirmed Problem Bipolar disorder (59580569) Bipolar depression (F31.9) Active confirmed Problem Chronic kidney disease stage 3A (disorder) (034718344) Chronic kidney disease, stage 3a (N18.31) Active confirmed Vital Signs Heart Rate 84 /min 10/02/2024 Temperature 97.5 degrees Fahrenheit 10/02/2024 Respiratory Rate 20 /min 10/02/2024 Height-cm 172.72 cm 10/02/2024 Oximetry 99 % 10/02/2024 Blood pressure diastolic 78 mm Hg 10/02/2024 Weight-kg 65.77 kg 10/02/2024 Height 68 in 10/02/2024 Blood pressure systolic 126 mm Hg 10/02/2024 Weight 145 lbs 10/02/2024 BMI 22.04 kg/m2 10/02/2024 Encounters Encounter Location Date Provider Diagnosis [facility] [address] [address] 05/28/2024 Lashae Gonzales Type 1 diabetes mellitus with diabetic neuropathy E10.40 ; HTN (hypertension) I10 ; Chronic kidney disease, stage 3a N18.31 and Depression screen Z13.31 [facility] [address] [address] 10/02/2024 Lashaerenard Rolon Type 1 diabetes mellitus with diabetic neuropathy E10.40 ; HTN (hypertension) I10 ; Chronic kidney disease, stage 3a N18.31 ; Bipolar depression F31.9 and Muscle spasm of back M62.830 [facility] [address] [address] 01/02/2025 Lashae Rolon [facility] [address] [place] [address] 05/22/2024 Aleyda Ross [facility] [address] [address] 08/20/2024 Lashae Rolon [facility] [address] [address] 04/23/2025 Lashae Rolon Assessments Encounter Date Diagnosis (ICD Code) Assessment Notes Treatment Notes Treatment Clinical Notes Section Notes 10/02/2024 HTN (hypertension) (ICD-10 - I10) Stable 10/02/2024 Type 1 diabetes mellitus with diabetic neuropathy (ICD-10 - E10.40) Recheck in 3 months. 05/28/2024 HTN (hypertension) (ICD-10 - I10) Stable 05/28/2024 Type 1 diabetes mellitus with diabetic neuropathy (ICD-10 - E10.40) Recheck in 3 months. 05/28/2024 Chronic kidney disease, stage 3a (ICD-10 - N18.31) 10/02/2024 Chronic kidney disease, stage 3a (ICD-10 - N18.31) Encouraged to make apt with Nephrology, referral was sent. 10/02/2024 Bipolar depression (ICD-10 - F31.9) 05/28/2024 Depression screen (ICD-10 - Z13.31) 10/02/2024 Muscle spasm of back (ICD-10 - M62.830) 05/28/2024 Other Venipuncture performed. Right arm. One attempt. Pt tolerated well, bleeding controlled with light dressing.Luma Curran LPN Plan Of Treatment No Information Insurance Providers Payer Name Payer Address Payer Phone Subscriber Number Group Number Insured Name Patient Relationship to Insured Coverage Start Date Coverage End Date [place] [address] [place] [address] [id number] Kellie Collier Self - patient is the insured Medical (General) History Hospitalization History Reason Date(Month/Year) hypoglycemia 05/20/2024
[2025-04-30] MEDS: Clindamycin 150 MG/ML SDV 2mL 900 MG IM (19:00)
[2025-04-30 19:30] VITALS: BP 156/104; PULSE 95; O2SAT 100
== END 2025-04-30 19:31 | disposition home or self-care (01) ==
PROVIDERS: Emergency Provider Emergency Medicine; PCP Nurse Practitioner Family
DX: K04.7 Periapical abscess without sinus (principal)
CPT/HCPCS: 96372; 99284; J0736; J1100; J1885